=== PATIENT | male | born 1965 | race Caucasian/White ===

== ENCOUNTER → 2016-12-09 | Outpatient (CLI) | payer OTHER ==
[~2016-12-09] MED LIST: ACET-1256 PO; LISI-787 PO; TNR50 PO
[2016-12-14 18:29] LABS: MUMPS VIRUS ANTIBODY IGM <1:20
== END | disposition home or self-care (01) ==
LOC: C.LABBFT 17:44
PROVIDERS: ATTEND Nurse Practitioner
DX: J02.9 Acute pharyngitis, unspecified (principal)

== ENCOUNTER → 2017-02-07 | Outpatient (CLI) | payer OTHER ==
[2017-02-07 14:50] LABS: ALT/SGPT 47 U/L (12-78); AST/SGOT 23 U/L (15-37); BLOOD UREA NITROGEN 10 mg/dl (7-18); BUN/CREATININE RATIO 9.2 (10-20); CALCIUM 8.7 mg/dl (8.5-10.1); CARBON DIOXIDE 26 mmol/L (21-32); CHLORIDE 102 mmol/L (98-107); GLUCOSE 95 mg/dl (70-99); POTASSIUM 4.2 mmol/L (3.5-5.1); SODIUM 138 mmol/L (136-145)
[2017-02-07 14:54] LABS: ALKALINE PHOSPHATASE 63 U/L (45-117); CHOLESTEROL 156 mg/dl (0-200); CHOLESTEROL/HDL RATIO 3.1; HDL CHOLESTEROL 50 mg/dl; LDL CHOLESTEROL CALCULATED 44 mg/dl; TRIGLYCERIDES 312 mg/dl (0-150); VERY LOW DENSITY LIPOPROT CALC 62 mg/dl
== END | disposition home or self-care (01) ==
LOC: C.LABBFT 08:34
PROVIDERS: ATTEND Physician Assistant Medical
DX: E78.5 Hyperlipidemia, unspecified (principal)

== ENCOUNTER → 2017-06-22 | Outpatient (CLI) | payer OTHER ==
[2017-06-22 12:12] LABS: BASO % 0.3 %; BASO ABS # 0.03 K/uL (0-0.2); COMPLETE YES; EOS % 3.4 %; HEMATOCRIT 41.8 % (42-52); IG% 0.7 %; LYMPH % 29.4 %; LYMPH ABS # 2.53 K/uL (1.2-3.4); MEAN CELL VOLUME 89.7 fL (80-100); MEAN CORPUSCULAR HEMOGLOBIN 29.8 pg (25-34); MEAN CORPUSCULAR HGB CONC 33.3 g/dl (32-36); MEAN PLATELET VOLUME 9.7 fL (7.4-10.4); MONO % 8.9 %; NEUT % 57.3 %; PLATELET COUNT 284 K/uL (130-400); RED BLOOD COUNT 4.66 M/uL (4.7-6.1); WHITE BLOOD COUNT 8.62 K/uL (4.8-10.8)
[2017-06-22 13:42] LABS: BLOOD UREA NITROGEN 18 mg/dl (7-18); BUN/CREATININE RATIO 13.6 (10-20); CARBON DIOXIDE 28 mmol/L (21-32); CHLORIDE 101 mmol/L (98-107); GLUCOSE 106 mg/dl (70-99); SODIUM 135 mmol/L (136-145)
[2017-06-22 13:45] LABS: PROSTATE SPECIFIC ANTIGEN 0.639 ng/ml (0.000-4.000)
[2017-06-22 13:51] LABS: ESTIMATED AVERAGE GLUCOSE 123 mg/dl; HA1C FLAG Normal (Normal)
== END | disposition home or self-care (01) ==
LOC: C.LABBFT 08:44
PROVIDERS: ATTEND Internal Medicine
DX: R73.9 Hyperglycemia, unspecified (principal); Z12.5 Encounter for screening for malignant neoplasm of prostate

== ENCOUNTER → 2017-12-13 | Outpatient (CLI) | payer OTHER ==
[~2017-12-13] MED LIST changes: +ATEN50TA8 PO; +ATOR-54 PO; +AZIT250T PO; +LISI-788 PO; +MULT-916 PO; +NICO2GUM7; +PRLSR20 PO
[2017-12-13 12:24] LABS: BASO % 0.5 %; BASO ABS # 0.04 K/uL (0-0.2); EOS % 2.3 %; HEMATOCRIT 40.7 % (42-52); HEMOGLOBIN 14.2 g/dL (14.0-18.0); IG# 0.03 K/uL (0.00-0.02); LYMPH % 27.8 %; LYMPH ABS # 2.37 K/uL (1.2-3.4); MEAN CELL VOLUME 88.1 fL (80-100); MEAN CORPUSCULAR HEMOGLOBIN 30.7 pg (25-34); MEAN CORPUSCULAR HGB CONC 34.9 g/dl (32-36); MEAN PLATELET VOLUME 9.5 fL (7.4-10.4); MONO % 7.5 %; MONO ABS # 0.64 K/uL (0.11-0.59); NEUT % 61.5 %; NEUT ABS # 5.25 K/uL (1.4-6.5); PLATELET COUNT 311 K/uL (130-400); RED CELL DISTRIBUTION WIDTH CV 13.2 % (11.5-14.5); RED CELL DISTRIBUTION WIDTH SD 42.4 fL (36.4-46.3); WHITE BLOOD COUNT 8.53 K/uL (4.8-10.8)
[2017-12-13 12:37] LABS: BLOOD UREA NITROGEN 13 mg/dl (7-18); CALCIUM 9.4 mg/dl (8.5-10.1); CARBON DIOXIDE 27 mmol/L (21-32); CREATININE 1.24 mg/dl (0.60-1.40); GLUCOSE 113 mg/dl (70-99); POTASSIUM 3.9 mmol/L (3.5-5.1); SODIUM 135 mmol/L (136-145)
[2017-12-13 13:06] LABS: HEMOGLOBIN A1C 5.8 % (4.5-5.6)
== END | disposition home or self-care (01) ==
LOC: C.LABBFT 09:56
PROVIDERS: ATTEND Internal Medicine
DX: R73.01 Impaired fasting glucose (principal); D64.9 Anemia, unspecified

== ENCOUNTER → 2018-02-15 | Day surgery (SDC) | payer OTHER ==
[2018-02-08 08:22] VITALS: BMI 35.0
[~2018-02-15] VITALS: Ht 188 cm; Wt 122.7 kg
[~2018-02-15] MED LIST changes: -ACET-1256 PO; -LISI-787 PO; +SODIUM CHLORIDE 0.9% 500ML 500 ML IV ONE; -TNR50 PO
[2018-02-15 15:12] VITALS: Ht 188 cm; Wt 122.7 kg
--- NOTE | 2018-02-15 15:28 | Endo History and Physical ---
History & Physical Date of Service: Feb 15, 2018. Chief Complaint: SCREENING FOR COLON CANCER Referring Physician: DR SU History of Present Illness 52 yo CM who presents for screening colonoscopy. Past Surgical History Hx Cardiac Surgery: No Hx Internal Defibrillator: No Hx Pacemaker: No Hx Abdominal Surgery: Yes (ABDOMINAL HERNIA) Hx of Implantable Prosthesis: No Hx Post-Op Nausea and Vomiting: No Hx Cancer Surgery: No Hx Thoracic Surgery: No Hx Orthopedic: Yes (RT HAND FINGER AMPUTATION/RE-ATTACHED) Hx Urinary Tract Surgery: No Family History None Social History Smoking Status: Former Smoker Hx Substance Use: No Hx Alcohol Use: Yes (3-4 DRINKS DAILY) Allergies Coded Allergies: No Known Allergies (Verified , 02/08/18) Current Medications Reported Home Medications Medications Dose Route/Sig Max Daily Dose Days Date Category Nicorette 2MG Gum (Nicotine Polacrilex) 2 Mg Gum 02/08/18 Reported Multivitamin Adults 50+ (Multiple Vitamins W/ Minerals) 1 Tab Tab 1 Tab PO QAM 02/08/18 Reported Prilosec (Omeprazole) 20 Mg Capcr 20 Mg PO QAM 02/08/18 Reported Zestoretic 20MG/25MG (HCTZ/Lisinopril) Tab 1 Tab PO QAM 02/08/18 Reported Zithromax (Azithromycin) 250 Mg Tab 250 Mg PO DIRECTED 02/08/18 Reported Lipitor (Atorvastatin) 20 Mg Tab 20 Mg PO QAM 02/08/18 Reported Tenormin (Atenolol) 50 Mg Tab 50 Mg PO QAM 02/08/18 Reported Vital Signs Weight (Kilograms): 122.73 Height (Feet): 6 Height (Inches): 2 Physical Exam General Appearance: WD/WN, no apparent distress Respiratory/Chest: Auscultation: breath sounds normal Cardiovascular: Heart Auscultation: RRR Abdomen: Bowel Sounds: normal Inspection & Palpation: soft, non-distended, no tenderness, guarding & rebound Assessment and Plan Assessment: 52 yo CM who presents for screening colonoscopy. Plan: Proceed with colonoscopy.
--- NOTE | 2018-02-15 16:32 | Discharge Instructions ---
Endoscopy Patient Instructions Date / Procedure(s) Performed Feb 15, 2018. Colonoscopy Allergy Information Coded Allergies: No Known Allergies (Verified , 02/08/18) Discharge Date / Findings Feb 15, 2018. Fair bowel prep Medication Instructions OK to resume all medications today as prescribed Reported Home Medications Medications Dose Route/Sig Max Daily Dose Days Date Category Nicorette 2MG Gum (Nicotine Polacrilex) 2 Mg Gum 02/08/18 Reported Multivitamin Adults 50+ (Multiple Vitamins W/ Minerals) 1 Tab Tab 1 Tab PO QAM 02/08/18 Reported Prilosec (Omeprazole) 20 Mg Capcr 20 Mg PO QAM 02/08/18 Reported Zestoretic 20MG/25MG (HCTZ/Lisinopril) Tab 1 Tab PO QAM 02/08/18 Reported Zithromax (Azithromycin) 250 Mg Tab 250 Mg PO DIRECTED 02/08/18 Reported Lipitor (Atorvastatin) 20 Mg Tab 20 Mg PO QAM 02/08/18 Reported Tenormin (Atenolol) 50 Mg Tab 50 Mg PO QAM 02/08/18 Reported Provider Instructions Activity Restrictions - No exercising or heavy lifting for 24 hours. - Do not drink alcohol the day of the procedure. - Do not drive a car or operate machinery until the day after the procedure. - Do not make any important decisions or sign important papers in 24 hours after the procedure. Following Day: - Return to full activity which may include returning to work/school. Diet Start your diet with liquids and light foods (jello, soup, juice, toast). Then eat your usual diet if not nauseated. Treatment For Common After Affects For mild abdominal pain, bloating, or excessive gas: - Rest - Eat lightly - Lie on right side Follow-Up Information Follow-up with DR SU as scheduled Anesthesia Information What You Should Know You have had a procedure that required some medicine to reduce anxiety and discomfort. This treatment is called moderate sedation. After receiving the treatment, you may be sleepy, but you will be able to breathe on your own. The effects of the treatment may last for several hours. Follow these instructions along with Activity/Diet recommendations noted above: * Do NOT do anything where dizziness or clumsiness would be dangerous. * Rest quietly at home today, then you can be up and about tomorrow. * Have a responsible person stay with you the rest of today. * You may have had an I.V. today. If so, you may take the dressing off later today. Recommendations Call your doctor if: * Trouble breathing * Continuous vomiting for more than 24 hours * Temperature above 101 degrees * Severe abdominal pain or bloating * Pain not relieved by pain medicine ordered * There is increased drainage or redness from any incision * A large amount of rectal bleeding greater than 2-3 tablespoons. (If you had a polyp/s removed or have hemorrhoids, a small amount of blood - from the rectum is to be expected.) * You have any unanswered questions or concerns. IN THE EVENT OF A SERIOUS EMERGENCY, GO TO THE NEAREST EMERGENCY ROOM Your discharge instructions were prepared by provider Boris Avalos. Patient Instructions Signature Page Noel Russell Patient (or Guardian) Signature/Date: I have read and understand the instructions given to me by my caregivers. Caregiver/RN/Doctor Signature/Date: The above-named patient and/or guardian has received patient instructions on this date. + Original Patient Signature Page (only) stays with chart. Please make copy for patient.
--- NOTE | 2018-02-15 16:51 | Anesthesiology Progress Note ---
Anesthesia Post Op Note Date & Time Feb 15, 2018 at 16:51 Vital Signs Pain Intensity: 0 Vital Signs Past 12 Hours Date Time Temp Pulse Resp B/P (MAP) Pulse Ox O2 Delivery O2 Flow Rate FiO2 02/15/18 16:49 76 18 134/83 (100) 97 Room Air 02/15/18 16:34 84 17 115/67 (83) 96 Room Air Notes Mental Status: alert / awake / arousable, participated in evaluation Pt Amnestic to Procedure: Yes Nausea / Vomiting: adequately controlled Pain: adequately controlled Airway Patency, RR, SpO2: stable & adequate BP & HR: stable & adequate Hydration State: stable & adequate Anesthetic Complications: no major complications apparent
[2018-02-15 17:04] VITALS: BP 119/70; PULSE 73; O2SAT 98
--- NOTE | 2018-02-16 11:34 | GI REPORT ---
Patient Name: Noel Russell Procedure Date: 02/15/2018 3:29 PM Date of : 1965 Admit Type: Outpatient Age: 52 Gender: Male Attending MD: Boris Avalos DO Procedure: Colonoscopy Providers: Boris Avalos DO Referring MD: Jose Salazar Indications: Screening for colorectal malignant neoplasm Medicines: Monitored Anesthesia Care Complications: No immediate complications. Estimated Blood Loss: Estimated blood loss: none. Procedure: Pre-Anesthesia Assessment: - Prior to the procedure, a History and Physical was performed, and patient medications and allergies were reviewed. The patient's tolerance of previous anesthesia was also reviewed. The risks and benefits of the procedure and the sedation options and risks were discussed with the patient. All questions were answered, and informed consent was obtained. Prior Anticoagulants: The patient has taken no previous anticoagulant or antiplatelet agents. ASA Grade Assessment: II - A patient with mild systemic disease. After reviewing the risks and benefits, the patient was deemed in satisfactory condition to undergo the procedure. After I obtained informed consent, the scope was passed under direct vision. Throughout the procedure, the patient's blood pressure, pulse, and oxygen saturations were monitored continuously. The scope was introduced through the anus and advanced to the terminal ileum. The colonoscopy was performed without difficulty. The patient tolerated the procedure well. The quality of the bowel preparation was fair. The terminal ileum, ileocecal valve, appendiceal orifice, and rectum were photographed. Findings: The perianal and digital rectal examinations were normal. A moderate amount of semi-solid stool was found in the entire colon, precluding visualization. Lavage of the area was performed using a large amount, resulting in incomplete clearance with fair visualization. Impression: - Preparation of the colon was fair. - Stool in the entire examined colon. - No specimens collected. Recommendation: - Resume previous diet. - Continue present medications. - Repeat colonoscopy in 1 year because the bowel preparation was poor. - Return to primary care physician as previously scheduled. Boris Avalos DO 02/15/2018 4:39:42 PM This report has been signed electronically. Note Initiated On: 02/15/2018 3:29 PM Number of Addenda: 0 I attest to the content of the Intraoperative Record and orders documented therein, exceptions below {[id number]}
== END | disposition home or self-care (01) ==
LOC: C.GI 13:58
PROVIDERS: ATTEND Internal Medicine
DX: Z12.11 Encounter for screening for malignant neoplasm of colon (principal); I10 Essential (primary) hypertension; K21.9 Gastro-esophageal reflux disease without esophagitis; J45.909 Unspecified asthma, uncomplicated; Z87.891 Personal history of nicotine dependence

== ENCOUNTER 2025-10-18 16:42 | Inpatient (IN) ==
--- NOTE | 2025-10-18 17:19 | Emergency Department Note ---
History of Present Illness General Chief Complaint: Respiratory Problems Stated Complaint: POSS PNEUMONIA, CHEST X-RAY Time Seen by Provider: 10/18/25 16:49 History of Present Illness Provider Complaint: shortness of breath and cough Onset (ago): day(s) (2) Consistency/Duration: + progressively worsening Exacerbated By: + exertion and + coughing Context: + recent illness (Diagnosed with influenza A yesterday at home test) Known history of: asthma Associated symptoms: + fever, + cough, + wheezing, + sputum production and + chest congestion; no nausea/vomiting, no abdominal pain or no rash HPI Narrative: Patient was started on Tamiflu yesterday Home Medications Medication Instructions Recorded Confirmed Type albuterol sulfate 90 mcg/actuation 2 inh inhalation Q4H PRN shortness 01/10/24 10/18/25 Rx aerosol inhaler of breath or wheezing #6.7 grams cholecalciferol (vitamin D3) 125 125 mcg PO DAILY 06/14/24 10/18/25 History mcg (5,000 unit) capsule sildenafil 50 mg tablet (Viagra) 50 mg PO DAILY PRN sexual activity 06/22/24 10/18/25 Rx #20 tabs metformin 500 mg tablet,extended 500 mg PO BID #180 tabs 10/09/24 10/18/25 Rx release 24 hr levothyroxine 175 mcg tablet 175 mcg PO DAILY #90 tabs 03/04/25 10/18/25 Rx lisinopril 20 1 tab PO DAILY #90 tabs 07/10/25 10/18/25 Rx mg-hydrochlorothiazide 25 mg tablet allopurinol 300 mg tablet 300 mg PO DAILY #90 tabs 07/11/25 10/18/25 Rx atorvastatin 80 mg tablet 80 mg PO QAM #90 tabs 09/27/25 10/18/25 Rx atenolol 50 mg tablet 50 mg PO QAM #90 tabs 09/30/25 10/18/25 Rx benzonatate 200 mg capsule 200 mg PO TID PRN cough #30 caps 10/15/25 10/18/25 Rx oseltamivir 75 mg capsule (Tamiflu) 75 mg PO BID 5 days #10 caps 10/15/25 10/18/25 Rx Allergies Allergy/AdvReac Type Severity Reaction Status Date / Time celecoxib Allergy Intermediate Rash Verified 10/14/25 09:06 Past Med/Surg History Problem List (Updated 10/18/25 @ 19:46 by Pradeep Aguilar MD) Hypomagnesemia (Acute) Influenza (Acute) Hypoxia (Acute) Bilateral foot pain Right foot pain Herpes zoster Vitamin D deficiency Gout Status post thyroidectomy Exertional shortness of breath Hypothyroidism associated with surgical procedure H/O shoulder surgery 08/10/23-scapula muscle repair Obesity Asthma Hypercalcemia Abnormal computed tomography of lung Conversion disorder with seizures or convulsions GERD (gastroesophageal reflux disease) Hyperlipidemia Hypertension Inguinal hernia Insomnia Microscopic hematuria PTSD (post-traumatic stress disorder) Moderate obstructive sleep apnea Nocturnal hypoxemia Osteoarthritis of left shoulder Thyroid nodule Pulmonary nodule 6MM NODULE IN RIGHT LOWER LUNG LOBE PER 10/18/22 CHEST CTA Cervical radiculopathy Prediabetes Medical History Hx of gastroesophageal reflux (GERD) Stable and controlled Post traumatic stress disorder History of COVID-2019>RESOLVED Abscess of buttock, right Seen by general surgery 11/24/22- possible fistula to right buttocks - no antibiotics - no pus or drainage at this time Sleep apnea CPAP "JUST GOT NEW DEVICE">WAS TOLD NOT TO USE UNTIL VISIT WITH DR. CROUCH (NO APPT AT THIS TIME) Hyperglobulinemia Hypertension Hyperlipidemia Surgical History H/O drainage of abscess (02/21/02) 1. Rectal examination under anesthesia. 2. Incision and drainage of perirectal abscess. Dr. Mani Frausto Status post incision and drainage (08/31/19) incision and drainage perirectal abscess Dr. Oviedo History of right inguinal hernia repair (06/20/19) Right Open Recurrent Inguinal Hernia Repair with Mesh, Neurectomy, Explantation of Mesh(Right) - Maurice Phillips DO, FACS Status post laparoscopic hernia repair (12/27/18) Right Laparoscopic Inguinal Hernia Repair(Right) - Maurice Phillips DO, FACS Open Umbilical Hernia Repair with mesh (Not Applicable) - Maurice Phillips DO, FACS Status post replacement of right shoulder joint (~11/2022) H/O arthroscopy of hip RT History of tooth extraction History of hernia surgery RT INGUINAL HERNIA (TOTAL 9 SURGERIES FOR HERNIA IN RT GROIN) 11/15/2019 Dr. Vinny Mccray [place] Exploration of right groin, right rectus abdominis compartment Decompression Right rectus abdominis repair Mobilization of mesh on the right Right adductor Longus and Pectineus Repairs Right adductor Longus and Pectineus Compartment Decompression Steroid Injection Hx of colonoscopy 02/05/2004 Dr. Corbin 02/15/18 Dr. Avalos (was recommended to have repeated in one year) 04/21/2000 Dr. Avalos History of surgery REATTACHMENT OF SEVERED FINGER History of vasectomy Family History Family/Other Hypertension Father Suicide Other No family history of adverse response to anesthesia Obstructive sleep apnea Denies family history of Ovarian cancer Prostate cancer Breast cancer Colorectal cancer Social History Smoking Status: Former smoker Tobacco Type: Cigars Age Started Using Tobacco: 42; Cigarettes Per Day: Pt reports smoking 1-2 cigars a year at [employer] -USES [employer]IC[employer] G[employer] NOW; Second Hand Exposure: No; Do You Dip or Chew Tobacco: No (QUIT 2 YEARS AGO); Hx Alcohol Use: Yes Alcohol type: beer Alcohol Intake Frequency: 4 or More x per/Week Alcohol Intake Frequency Comment: Average 2 beers per day during the week, 6-7 beers per day on weekend Hx Substance Use: No Preferred Language: Maltese Communication Ability: Effective Visual Impairment: No Limitations Hearing Ability: Normal Computational Linguist Required: No Beliefs That Will Affect Care: None marital status: Current Living Situation: Significant Other Current Living Situation Comment: Lives with son and girlfriend current occupational status: employed 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 [facility] Feels Safe at Home: Yes Childhood Exposure to Second-Hand Smoke: Yes Diet: regular caffeine: Yes Dental Care, Regularly: No Physical Activity Frequency: 3-4 Times per Week Seatbelt Use: always Sunscreen Use: No Assistive Devices: Contacts, CPAP and Glasses Physical Exam 2 Vital Signs: Vital Signs - 24 hr 10/18/25 16:43 10/18/25 16:53 10/18/25 16:57 Temperature 36.1 C L Temperature Source Temporal Artery Sc an Pulse Rate 91 H 83 Pulse Rate [Apical ] Pulse Rate from Sp O2 Sensor Respiratory Rate 18 Respiratory Effort / Characteristics Non-Labored Sponta neous Spontaneous Respiratory Depth Normal Normal Respiratory Patter n Regular Regular Blood Pressure 138/84 Blood Pressure [Ri ght Arm] Blood Pressure Susana n 102 Blood Pressure Susana n [Right Arm] Pulse Oximetry 88 L Oxygen Delivery Me thod Room Air Room Air Oxygen Flow Rate Sepsis Recent Feve r Within 48 Hours No Sepsis New/Unexpla ined Change in Men whitney Status No Sepsis Action Take n by Nursing No Action Required Oxygen Flow Rate - Titration Pulse Oximetry Pos t Tiitration 10/18/25 17:00 10/18/25 17:04 10/18/25 17:12 Temperature Temperature Source Pulse Rate 83 85 85 Pulse Rate [Apical ] Pulse Rate from Sp O2 Sensor Respiratory Rate 18 24 24 Respiratory Effort / Characteristics Respiratory Depth Respiratory Patter n Blood Pressure 110/83 Blood Pressure [Ri ght Arm] Blood Pressure Susana n 92 Blood Pressure Susana n [Right Arm] Pulse Oximetry 95 93 Oxygen Delivery Me thod Room Air Oxygen Flow Rate Sepsis Recent Feve r Within 48 Hours Sepsis New/Unexpla ined Change in Men whitney Status Sepsis Action Take n by Nursing Oxygen Flow Rate - Titration Pulse Oximetry Pos t Tiitration 10/18/25 17:30 10/18/25 17:38 10/18/25 17:42 Temperature Temperature Source Pulse Rate 85 84 Pulse Rate [Apical ] 86 Pulse Rate from Sp O2 Sensor Respiratory Rate 23 21 23 Respiratory Effort / Characteristics Respiratory Depth Respiratory Patter n Blood Pressure 115/71 Blood Pressure [Ri ght Arm] 115/71 Blood Pressure Susana n 85 Blood Pressure Susana n [Right Arm] 85 Pulse Oximetry 96 94 93 Oxygen Delivery Me thod Room Air Oxygen Flow Rate Sepsis Recent Feve r Within 48 Hours Sepsis New/Unexpla ined Change in Men whitney Status Sepsis Action Take n by Nursing Oxygen Flow Rate - Titration Pulse Oximetry Pos t Tiitration 10/18/25 18:00 10/18/25 18:06 10/18/25 18:15 Temperature Temperature Source Pulse Rate 82 86 99 H Pulse Rate [Apical ] Pulse Rate from Sp O2 Sensor Respiratory Rate 18 20 14 Respiratory Effort / Characteristics Respiratory Depth Respiratory Patter n Blood Pressure 122/77 Blood Pressure [Ri ght Arm] Blood Pressure Susana n 92 Blood Pressure Susana n [Right Arm] Pulse Oximetry 96 95 94 Oxygen Delivery Me thod Oxygen Flow Rate Sepsis Recent Feve r Within 48 Hours Sepsis New/Unexpla ined Change in Men whitney Status Sepsis Action Take n by Nursing Oxygen Flow Rate - Titration Pulse Oximetry Pos t Tiitration 10/18/25 18:16 10/18/25 18:30 10/18/25 18:42 Temperature Temperature Source Pulse Rate 97 H Pulse Rate [Apical ] Pulse Rate from Sp O2 Sensor 105 H Respiratory Rate 19 Respiratory Effort / Characteristics Respiratory Depth Respiratory Patter n Blood Pressure 120/84 Blood Pressure [Ri ght Arm] Blood Pressure Susana n 90 Blood Pressure Susana n [Right Arm] Pulse Oximetry 93 98 Oxygen Delivery Me thod Oxygen Flow Rate Sepsis Recent Feve r Within 48 Hours Sepsis New/Unexpla ined Change in Men whitney Status Sepsis Action Take n by Nursing Oxygen Flow Rate - Titration Pulse Oximetry Pos t Tiitration 10/18/25 18:53 10/18/25 19:00 10/18/25 19:12 Temperature Temperature Source Pulse Rate 110 H Pulse Rate [Apical ] Pulse Rate from Sp O2 Sensor Respiratory Rate 16 Respiratory Effort / Characteristics Respiratory Depth Respiratory Patter n Blood Pressure 108/62 127/68 Blood Pressure [Ri ght Arm] Blood Pressure Suasna n 71 87 Blood Pressure Susana n [Right Arm] Pulse Oximetry 92 86 L Oxygen Delivery Me thod Room Air Oxygen Flow Rate 0 Sepsis Recent Feve r Within 48 Hours Sepsis New/Unexpla ined Change in Men whitney Status Sepsis Action Take n by Nursing Oxygen Flow Rate - Titration 2 Pulse Oximetry Pos t Tiitration 95 10/18/25 19:15 10/18/25 19:30 Temperature Temperature Source Pulse Rate 104 H 102 H Pulse Rate [Apical ] Pulse Rate from Sp O2 Sensor Respiratory Rate 18 23 Respiratory Effort / Characteristics Respiratory Depth Respiratory Patter n Blood Pressure 139/96 Blood Pressure [Ri ght Arm] Blood Pressure Susana n 110 Blood Pressure Susana n [Right Arm] Pulse Oximetry 93 95 Oxygen Delivery Me thod Oxygen Flow Rate Sepsis Recent Feve r Within 48 Hours Sepsis New/Unexpla ined Change in Men whitney Status Sepsis Action Take n by Nursing Oxygen Flow Rate - Titration Pulse Oximetry Pos t Tiitration Physical Exam: Physical Exam GENERAL: oriented to person, place, and time. appears well-developed and well- nourished. HENT: Exam performed. - Head: Normocephalic and atraumatic. EYES: Conjunctivae and EOM are normal. Right eye exhibits no discharge. Left eye exhibits no discharge. No scleral icterus. NECK: Normal range of motion. Neck supple. No JVD present. CV: Normal rate, regular rhythm, normal heart sounds and intact distal pulses. There is no peripheral edema. Palpable radial pulses bue. PULM/CHEST: Scant expiratory wheezes bilaterally. ABD: The abdomen is soft. There is no tenderness. NEURO: Motor and sensation grossly intact. SKIN: Skin is warm and dry. He is not diaphoretic. PSYCH: normal mood and affect. Behavior is normal. Judgment and thought content normal. Course Course 1648: The patient was evaluated in room C9. A complete history and physical exam was performed Cardiac monitoring: An order was placed for continuous cardiac monitoring. The monitor shows a rate of 80 with sinus rhythm interpreted by me Patient was hypoxic in triage however when at rest in the bed patient's oxygen saturation is stable. Will order DuoNebs and steroids were patient. 1832: Vital signs stable. Ambulatory pulse ox trial patient's oxygen saturation goes down to 88-90. Will give repeat DuoNeb. 1915: Patient became hypoxic in the emergency department. Placed on 2 L nasal cannula which improved the patient ox saturation. Will plan on admitting the patient to the hospitalist service. Administered Medications Magnesium Sulfate/Dextrose (Magnesium Sulfate / D5w) 1 gm in 100 mls @ 100 mls/hr IV Q1H WENDI Stop: 10/18/25 20:06 Last Admin: 10/18/25 19:19 Dose: 100 mls/hr Documented By: cad Infusion: 10/18/25 19:19 Dose: Infused Documented By: cad Admin: 10/18/25 18:35 Dose: 100 mls/hr Documented By: CEF Discontinued Medications Albuterol (Albut/Ipratrop 3mg/0.5mg Neb 3 Ml Vial) 3 ml NEB NOW STA; Protocol Stop: 10/18/25 16:58 Last Admin: 10/18/25 17:41 Dose: 3 ml Documented By: cad Albuterol (Albut/Ipratrop 3mg/0.5mg Neb 3 Ml Vial) 3 ml NEB NOW STA; Protocol Stop: 10/18/25 16:59 Last Admin: 10/18/25 17:57 Dose: 3 ml Documented By: cad Albuterol (Albut/Ipratrop 3mg/0.5mg Neb 3 Ml Vial) 3 ml NEB NOW STA; Protocol Stop: 10/18/25 18:32 Last Admin: 10/18/25 18:33 Dose: 3 ml Documented By: CEF Methylprednisolone (Methylprednisolone 125 Mg/2 Ml Vial) 125 mg IV NOW STA Stop: 10/18/25 16:58 Last Admin: 10/18/25 17:40 Dose: 125 mg Documented By: cad Medical Decision Making Laboratory Data Attestation: I reviewed the patient's lab results. 10/18/25 17:18 10/18/25 17:18 Lab Results 10/18/25 10/18/25 10/18/25 Range/Units 17:18 17:29 17:38 WBC 7.27 (4.8-10.8) K/ul RBC 4.88 (4.70-6.10) M/uL Hgb 14.5 (14.0-18.0) g/dL Hct 42.8 (42.0-52.0) % MCV 87.7 (80.0-100.0) fL MCH 29.7 (25.0-34.0) pg MCHC 33.9 (32.0-36.0) g/dL RDW Std Deviation 44.0 (36.4-46.3) fL RDW Coeff of Meghann 13.7 (11.5-14.5) % Plt Count 263 (130-400) K/uL MPV 9.5 (9.4-12.4) fL Immature Gran % (Auto) 0.3 % Neut % (Auto) 53.5 % Lymph % (Auto) 33.1 % [place] % (Auto) 7.4 % Eos % (Auto) 5.1 % Baso % (Auto) 0.6 % Neut # (Auto) 3.89 (1.40-6.50) K/uL Lymph # (Auto) 2.41 (1.20-3.40) K/uL [place] # (Auto) 0.54 (0.11-0.59) K/uL Eos # (Auto) 0.37 (0.00-0.50) K/uL Baso # (Auto) 0.04 (0.00-0.20) K/uL Immature Gran # (Auto) 0.02 (0.01-0.20) K/uL PT 11.1 (9.0-12.0) Seconds INR 1.1 (0.9-1.1) APTT 24 (21-31) Seconds PTT Ratio 0.9 VBG pH 7.45 H (7.36-7.41) VBG pCO2 42 (38-50) mmHg VBG pO2 61 mmHg VBG HCO3 29 mmol/L VBG O2 Saturation 93.3 % VBG Base Excess 4.7 mEq/L Sodium 136 (136-145) mmol/L Potassium 3.7 (3.5-5.1) mmol/L Chloride 98 (98-107) mmol/L Carbon Dioxide 30 (21-32) mmol/L Anion Gap 8 (3-11) BUN 22 (6-23) mg/dl Creatinine 1.20 (0.6-1.4) mg/dl Est Cr Clr Drug Dosing 104.9 ml/min eGFR 70.10 BUN/Creatinine Ratio 18.3 (10-20) Glucose 119 H (70-99(Fasting)) mg/dl Lactate 1.4 (0.4-2.0) mmol/L Calcium 9.5 (8.6-10.3) mg/dl Magnesium 1.1 L (1.7-2.4) mg/dl Total Bilirubin 0.3 (0.2-1.0) mg/dl Direct Bilirubin 0.1 (0-0.2) mg/dl AST 31 (13-39) U/L ALT 29 (7-52) U/L Alkaline Phosphatase 63 (34-104) U/L Troponin I High Sens 4.1 (0-20) pg/ml Total Protein 7.3 (6.0-8.3) gm/dl Albumin 4.1 (3.4-5.0) gm/dl Procalcitonin 0.06 (0-0.5) ng/ml SARS-CoV-2 (PCR) NEGATIVE (Negative) Influenza Type A (PCR) Positive A (Neg) Influenza Type B (PCR) Negative (Neg) RSV (RT-PCR) Negative (Neg) Imaging Data Attestation: I personally reviewed and interpreted this imaging study as follows: My Impression: Chest x-ray negative. Airway clear. No pneumothorax. No consolidation. No cardiomegaly or cephalization.. No free air under the diaphragm. No fractures of the skeletal structures. Radiologist's Impression: Chest X-Ray 10/18/25 16:49 COMPARISON: 08/26/2023 FINDINGS: HEART: Normal in size. LUNGS: No focal consolidation, pleural effusion, or vascular congestion. MEEDIASTINUM: Unremarkable. BONES: Bony thorax appears intact. OTHER: Unremarkable. IMPRESSION: No acute disease. Electronically signed by Lauren Aguilar 10-18-2025 6:13 PM ECG Data Attestation: I personally reviewed and interpreted this ECG as follows: Interpretation: Sinus rhythm with rate of 82. MI QRS and QTc intervals within normal limits. No ST elevation or ST depression. Right bundle branch block present. [facility] Narrative 1649: The patient was evaluated in room C9. A complete history and physical exam was performed Cardiac monitoring: An order was placed for continuous cardiac monitoring. The monitor shows a rate of 80 with sinus rhythm interpreted by me Patient was hypoxic in triage however when at rest in the bed patient's oxygen saturation is stable. Will order DuoNebs and steroids were patient. 183: Vital signs stable. Ambulatory pulse ox trial patient's oxygen saturation goes down to 88-90. Will give repeat DuoNeb. 191: Patient became hypoxic in the emergency department. Placed on 2 L nasal cannula which improved the patient ox saturation. Will plan on admitting the patient to the hospitalist service. Impression & Plan Hypoxia, Influenza, Hypomagnesemia Critical Care Time Critical Care Time: Yes Total Critical Care Time: 58 I have personally spent greater than 58 minutes of critical care time in the direct management of this patient. This includes bedside care, interpretation of diagnostic studies, and testing, discussion with consultants, patient, and family members, and other required patient management activities. This 58 minutes is in excess of all separately billable procedures. Discharge Plan Visit Data Chief Complaint: Respiratory Problems Stated Complaint: POSS PNEUMONIA, CHEST X-RAY ED Provider: Pradeep Aguilar Discharge Problem: Hypoxia, Influenza, Hypomagnesemia Patient Disposition: Admitted As Inpatient Condition: Serious Forms Stand Alone Forms: My [facility] Prescriptions Prescriptions: No Action sildenafil [Viagra] 50 mg tablet 50 mg PO DAILY PRN (Reason: sexual activity) Qty: 20 0RF Rx Instructions: administer 30 minutes to 4 hours before activity levothyroxine 175 mcg tablet 175 mcg PO DAILY Qty: 90 3RF lisinopril-hydrochlorothiazide 20-25 mg tablet 1 tab PO DAILY Qty: 90 3RF Patient Comments: pt takes in the am atorvastatin 80 mg tablet 80 mg PO QAM Qty: 90 3RF atenolol 50 mg tablet 50 mg PO QAM Qty: 90 3RF oseltamivir [Tamiflu] 75 mg capsule 75 mg PO BID 5 Days Qty: 10 0RF benzonatate 200 mg capsule 200 mg PO TID PRN (Reason: cough) Qty: 30 0RF Rx Instructions: Keep out of reach of children. Do not crush or chew. albuterol sulfate 90 mcg/actuation HFA aerosol inhaler 2 inh inhalation Q4H PRN (Reason: shortness of breath or wheezing) Qty: 6.7 3RF allopurinol 300 mg tablet 300 mg PO DAILY Qty: 90 3RF cholecalciferol (vitamin D3) 125 mcg (5,000 unit) capsule 125 mcg PO DAILY metformin 500 mg tablet extended release 24 hr 500 mg PO BID Qty: 180 3RF Referrals Referrals: Jose Salazar MD [Primary Care Provider] -
[2025-10-18] MEDS: ALBUT/IPRATROP 3MG/0.5MG NEB 3 ML VIAL NEB STA ×3 (17:41→18:33)
[2025-10-18 17:43] LABS: Hematocrit (blood only) 42.8 % (42.0-52.0); Hemoglobin 14.5 g/dL (14.0-18.0); Immature Granulocytes # (auto) 0.02 K/uL (0.01-0.20); Immature Granulocytes % (auto) 0.3 %; Mean Corpuscular Hemoglobin 29.7 pg (25.0-34.0); Mean Corpuscular Volume 87.7 fL (80.0-100.0); Platelet Count 263 K/uL (130-400); RDW Standard Deviation 44.0 fL (36.4-46.3); Red Blood Count 4.88 M/uL (4.70-6.10); White Blood Count 7.27 K/ul (4.8-10.8)
[2025-10-18 17:53] LABS: Base Excess VBG 4.7 mEq/L; HCO3 VBG 29 mmol/L; Oxygen Saturation VBG 93.3 %; PCO2 VBG 42 mmHg (38-50); PO2 VBG 61 mmHg; pH VBG 7.45 (7.36-7.41)
[2025-10-18 18:03] LABS: Alanine Aminotransferase 29.0 U/L (7-52); Albumin Level 4.1 gm/dl (3.4-5.0); Alkaline Phosphatase 63.0 U/L (34-104); Anion Gap 8.0 (3-11); Bilirubin,Total 0.3 mg/dl (0.2-1.0); Blood Urea Nitrogen 22.0 mg/dl (6-23); Calcium 9.5 mg/dl (8.6-10.3); Carbon Dioxide 30.0 mmol/L (21-32); Chloride 98.0 mmol/L (98-107); Creatinine Clr Calc Pharmacy 104.9 ml/min; Glucose 119.0 mg/dl (70-99(Fasting)); Magnesium 1.1 mg/dl (1.7-2.4); Potassium 3.7 mmol/L (3.5-5.1); Sodium 136.0 mmol/L (136-145); Total Protein 7.3 gm/dl (6.0-8.3)
[2025-10-18 18:11] LABS: INR 1.1 (0.9-1.1); Partial Thromboplastin Time 24 Seconds (21-31); Prothrombin Time 11.1 Seconds (9.0-12.0)
--- NOTE | 2025-10-18 18:14 | XRay Report ---
COMPARISON: 08/26/2023 FINDINGS: HEART: Normal in size. LUNGS: No focal consolidation, pleural effusion, or vascular congestion. MEEDIASTINUM: Unremarkable. BONES: Bony thorax appears intact. OTHER: Unremarkable. IMPRESSION: No acute disease. Electronically signed by Lauren Aguilar 10-18-2025 6:13 PM
[2025-10-18 18:19] LABS: Influenza A virus by PCR Positive (Neg); Influenza B virus by PCR Negative (Neg); SARS CoV2 RNA(COVID-19) Ceph NEGATIVE (Negative)
[2025-10-18] MEDS: MAGNESIUM SULFATE / D5W 1 GM/100 ML BAG IV SCH ×2 (18:35→21:48)
--- NOTE | 2025-10-18 20:07 | History & Physical Report ---
Date of Service October 18, 2025 Assessment & Plan (1) Influenza: (2) Hypoxia: (3) Hypomagnesemia: (4) Hypertension: (5) Hyperlipidemia: (6) Status post thyroidectomy: Plan 60yo male with history of HTN, HLP, presenting with Influenza A, worsening SOB and hypoxia today. #Influenza / Hypoxia - patient with remote history of childhood asthma. He has a pulmonary nodule which is being followed by Pulmonology. No respiratory distress at present. Patient is saturating 95% on Oxymask -Admit to medical with telemetry -Continue supplemental O2 as needed -Continue Tamiflu 75mg po BID -Albuterol 2 puffs inhaled q 4 hours scheduled -Guaifenesin cough syrup PRN -Tylenol PRN -Incentive spirometry and flutter valve #Hypomagnesemia - patient with Mg=1.1. Has received 2gm IV in the ER thus far -Will provide additional 4gm of Magnesium -Repeat levels in AM #Hypertension - blood pressure mildly elevated at present -Will hold HCTZ -Continue Atenolol 50mg po qAM -Continue Lisinopril 20mg po qAM -Monitor #Hyperlipidemia - chronic, stable -Continue Atorvastatin 80mg po qAM #Bilateral foot pain - suspect plantar fasciitis as well as pain on bilateral halluces from bunions (hallux valgus). Patient had an x-ray performed on 10/14 which revealed hallux valgus, metatarsus adductus and claw toe deformities as well as mild osteoarthropathy. In regards to the burning pain, Iron level, B12 and Folate were WNL on 10/14/25. Could possibly be due to low magnesium in part -Conservative treatment with ice, NSAIDS -May benefit from Orthotics and podiatry at some point -Magnesium replacement #Status post thyroidectomy- was told that he did not have thyroid malignancy so targeting a normal TSH is likely acceptable -Continue thyroid replacement -Check TSH -Consider referral to Endocrinology outpatient - patient has gained a large amount of weight since his thyroidectomy History of Present Illness Chief Complaint: flu-like symptoms Primary Care Provider: Jose Salazar MD Noel Russell is a 60yo male with history of HTN, HLP and GERD presenting with flu-like symptoms. Patient developed fever, chills, body aches, sore throat and cough on 10/14/25. He took a home test on 10/14 and found to be POSITIVE for Influenza A. He was started on Tamiflu on 10/15 and he has been taking Mucinex and Tracee [facility] at home to manage his symptoms. Patient overall feels improved from earlier in the week but has been experiencing worsening shortness of breath and cough. His cough is occasionally productive for clear/white sputum. He has noted some wheezing as well. Patient with history of Asthma as a child but has not had many adult symptoms. He does have a pulmonary nodule with minimal tree-in-bud opacities in the RUL which is being followed by Pulmonary - has been stable since 12/04/2021. He had an autoimmune workup that was negative in October 2023. He has had PFTs in the past which revealed a decline in lung function, possibly due to weight gain which occurred after his thyroidectomy. Patient is scheduled to have a repeat CT Chest, PFTs and Pulmonary followup in the coming weeks. In the ER patient with low body temperature at 36.1, tachycardic at 103 following Albuterol. Saturations have been low - 85% on room air upon arrival and and again with saturations in the 80's after ambulation. ER Course: Solumedrol 125mg Albuterol 3mL neb x 3 Magnesium x 2gm Allergies Allergy/AdvReac Type Severity Reaction Status Date / Time celecoxib Allergy Intermediate Rash Verified 10/14/25 09:06 Home Medications Medication Instructions Recorded Confirmed Type albuterol sulfate 90 mcg/actuation 2 inh inhalation Q4H PRN shortness 01/10/24 10/18/25 Rx aerosol inhaler of breath or wheezing #6.7 grams cholecalciferol (vitamin D3) 125 125 mcg PO DAILY 06/14/24 10/18/25 History mcg (5,000 unit) capsule sildenafil 50 mg tablet (Viagra) 50 mg PO DAILY PRN sexual activity 06/22/24 10/18/25 Rx #20 tabs metformin 500 mg tablet,extended 500 mg PO BID #180 tabs 10/09/24 10/18/25 Rx release 24 hr levothyroxine 175 mcg tablet 175 mcg PO DAILY #90 tabs 03/04/25 10/18/25 Rx lisinopril 20 1 tab PO DAILY #90 tabs 07/10/25 10/18/25 Rx mg-hydrochlorothiazide 25 mg tablet allopurinol 300 mg tablet 300 mg PO DAILY #90 tabs 07/11/25 10/18/25 Rx atorvastatin 80 mg tablet 80 mg PO QAM #90 tabs 09/27/25 10/18/25 Rx atenolol 50 mg tablet 50 mg PO QAM #90 tabs 09/30/25 10/18/25 Rx benzonatate 200 mg capsule 200 mg PO TID PRN cough #30 caps 10/15/25 10/18/25 Rx oseltamivir 75 mg capsule (Tamiflu) 75 mg PO BID 5 days #10 caps 10/15/25 10/18/25 Rx Past Med/Surg History Problem List (Updated 10/18/25 @ 21:02 by Claudy Mabry) Hypomagnesemia (Acute) Influenza (Acute) Hypoxia (Acute) Bilateral foot pain Right foot pain Herpes zoster Vitamin D deficiency Gout Status post thyroidectomy Exertional shortness of breath Hypothyroidism associated with surgical procedure H/O shoulder surgery 08/10/23-scapula muscle repair Obesity Asthma Hypercalcemia Abnormal computed tomography of lung Conversion disorder with seizures or convulsions GERD (gastroesophageal reflux disease) Hyperlipidemia Hypertension Inguinal hernia Insomnia Microscopic hematuria PTSD (post-traumatic stress disorder) Moderate obstructive sleep apnea Nocturnal hypoxemia Osteoarthritis of left shoulder Thyroid nodule Pulmonary nodule 6MM NODULE IN RIGHT LOWER LUNG LOBE PER 10/18/22 CHEST CTA Cervical radiculopathy Prediabetes Medical History Hx of gastroesophageal reflux (GERD) Stable and controlled Post traumatic stress disorder History of COVID-2019>RESOLVED Abscess of buttock, right Seen by general surgery 11/24/22- possible fistula to right buttocks - no antibiotics - no pus or drainage at this time Sleep apnea CPAP "JUST GOT NEW DEVICE">WAS TOLD NOT TO USE UNTIL VISIT WITH DR. CROUCH (NO APPT AT THIS TIME) Hyperglobulinemia Hypertension Hyperlipidemia Surgical History H/O drainage of abscess (02/21/02) 1. Rectal examination under anesthesia. 2. Incision and drainage of perirectal abscess. Dr. Mani Frausto Status post incision and drainage (08/31/19) incision and drainage perirectal abscess Dr. Oviedo History of right inguinal hernia repair (06/20/19) Right Open Recurrent Inguinal Hernia Repair with Mesh, Neurectomy, Explantation of Mesh(Right) - Maurice Phillips DO, FACS Status post laparoscopic hernia repair (12/27/18) Right Laparoscopic Inguinal Hernia Repair(Right) - Maurice Phillips DO, FACS Open Umbilical Hernia Repair with mesh (Not Applicable) - Maurice Phillips DO, FACS Status post replacement of right shoulder joint (~11/2022) H/O arthroscopy of hip RT History of tooth extraction History of hernia surgery RT INGUINAL HERNIA (TOTAL 9 SURGERIES FOR HERNIA IN RT GROIN) 11/15/2019 Dr. Vinny Mccray [facility] Exploration of right groin, right rectus abdominis compartment Decompression Right rectus abdominis repair Mobilization of mesh on the right Right adductor Longus and Pectineus Repairs Right adductor Longus and Pectineus Compartment Decompression Steroid Injection Hx of colonoscopy 02/05/2004 Dr. Corbin 02/15/18 Dr. Avalos (was recommended to have repeated in one year) 04/21/2000 Dr. Avalos History of surgery REATTACHMENT OF SEVERED FINGER History of vasectomy Family History Family/Other Hypertension Father Suicide Other No family history of adverse response to anesthesia Obstructive sleep apnea Denies family history of Ovarian cancer Prostate cancer Breast cancer Colorectal cancer Social History Smoking Status: Former smoker Tobacco Type: Cigars Age Started Using Tobacco: 42; Cigarettes Per Day: Pt reports smoking 1-2 cigars a year at [facility] -USES NICOTINE GUM NOW; Second Hand Exposure: No; Do You Dip or Chew Tobacco: No (QUIT 2 YEARS AGO); Hx Alcohol Use: Yes Alcohol type: beer Alcohol Intake Frequency: 4 or More x per/Week Alcohol Intake Frequency Comment: Average 2 beers per day during the week, 6-7 beers per day on weekend Hx Substance Use: No Preferred Language: Austrian Communication Ability: Effective Visual Impairment: No Limitations Hearing Ability: Normal Continuity Reader Required: No Beliefs That Will Affect Care: None marital status: Current Living Situation: Significant Other Current Living Situation Comment: Lives with son and girlfriend current occupational status: employed 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 [employer] [facility] [employer] Home Feels Safe at Home: Yes Childhood Exposure to Second-Hand Smoke: Yes Diet: regular caffeine: Yes Dental Care, Regularly: No Physical Activity Frequency: 3-4 Times per Week Seatbelt Use: always Sunscreen Use: No Assistive Devices: Contacts, CPAP and Glasses Review of Systems Review of Systems: All systems reviewed & are unremarkable except as noted in HPI & below Physical Exam Physical Exam: General: patient resting comfortably, NAD, ill in appearance, AA&O x 4 Skin: warm, dry, intact, no rashes or lesions HEENT: NC/AT, PERRL, EOMI, anicteric sclera, conjunctiva without injection, external ear normal to inspection and nontender, nares patent, moist mucus membranes, dentition intact, no oropharyngeal lesions, neck supple, trachea midline, no LAD, no thyromegaly, no JVD Heart: +S1/S2, regular, tachycardic, no m/r/g Lungs: equal air entry bilaterally, some coarse rhonchi appreciated in mid-lung brown with scattered end-expiratory wheezing throughout Abd: +BS, soft, NT/ND, no masses/organomegaly/ascites Ext: warm, 2+ pulses in UE/LE bilaterally, no clubbing/cyanosis or edema. Pain with palpation of the plantar portion of both feet, pain with palpation of 1st hallux bilaterally. No warmth, redness Neuro: nonfocal, patient AA&O x 4, speech intact, no facial droop, moving all ex tremities on command with equal strength 5/5 Results & Data Results & Data Vital Signs (Past 12 Hours) Vital Signs Temp Pulse Pulse Resp BP BP Pulse Ox 10/18/25 19:45 104 H 26 H 95 10/18/25 19:30 139/96 10/18/25 19:30 102 H 23 139/96 95 10/18/25 19:15 104 H 18 93 10/18/25 19:12 86 L 10/18/25 19:00 110 H 16 127/68 92 10/18/25 18:53 108/62 10/18/25 18:42 97 H 19 98 10/18/25 18:30 93 10/18/25 18:16 120/84 10/18/25 18:15 99 H 14 94 10/18/25 18:06 86 20 122/77 95 10/18/25 18:00 82 18 96 10/18/25 17:42 84 23 93 10/18/25 17:38 86 21 115/71 94 10/18/25 17:30 85 23 115/71 96 10/18/25 17:12 85 24 93 10/18/25 17:04 85 24 95 10/18/25 17:00 83 18 110/83 10/18/25 16:57 83 10/18/25 16:53 10/18/25 16:43 36.1 C L 91 H 18 138/84 88 L O2 Del Method O2 Flow Rate 10/18/25 19:45 10/18/25 19:30 10/18/25 19:30 10/18/25 19:15 10/18/25 19:12 Room Air 0 10/18/25 19:00 10/18/25 18:53 10/18/25 18:42 10/18/25 18:30 10/18/25 18:16 10/18/25 18:15 10/18/25 18:06 10/18/25 18:00 10/18/25 17:42 10/18/25 17:38 Room Air 10/18/25 17:30 10/18/25 17:12 10/18/25 17:04 Room Air 10/18/25 17:00 10/18/25 16:57 10/18/25 16:53 Room Air 10/18/25 16:43 Room Air Laboratory Results Laboratory Results WBC 7.27 K/ul (4.8-10.8) 10/18/25 17:18 RBC 4.88 M/uL (4.70-6.10) 10/18/25 17:18 Hgb 14.5 g/dL (14.0-18.0) 10/18/25 17:18 Hct 42.8 % (42.0-52.0) 10/18/25 17:18 MCV 87.7 fL (80.0-100.0) 10/18/25 17:18 MCH 29.7 pg (25.0-34.0) 10/18/25 17:18 MCHC 33.9 g/dL (32.0-36.0) 10/18/25 17:18 RDW Std Deviation 44.0 fL (36.4-46.3) 10/18/25 17:18 RDW Coeff of Meghann 13.7 % (11.5-14.5) 10/18/25 17:18 Plt Count 263 K/uL (130-400) 10/18/25 17:18 MPV 9.5 fL (9.4-12.4) 10/18/25 17:18 Immature Gran % (Auto) 0.3 % 10/18/25 17:18 Neut % (Auto) 53.5 % 10/18/25 17:18 Lymph % (Auto) 33.1 % 10/18/25 17:18 [place] % (Auto) 7.4 % 10/18/25 17:18 Eos % (Auto) 5.1 % 10/18/25 17:18 Baso % (Auto) 0.6 % 10/18/25 17:18 Neut # (Auto) 3.89 K/uL (1.40-6.50) 10/18/25 17:18 Lymph # (Auto) 2.41 K/uL (1.20-3.40) 10/18/25 17:18 [place] # (Auto) 0.54 K/uL (0.11-0.59) 10/18/25 17:18 Eos # (Auto) 0.37 K/uL (0.00-0.50) 10/18/25 17:18 Baso # (Auto) 0.04 K/uL (0.00-0.20) 10/18/25 17:18 Immature Gran # (Auto) 0.02 K/uL (0.01-0.20) 10/18/25 17:18 PT 11.1 Seconds (9.0-12.0) 10/18/25 17:18 INR 1.1 (0.9-1.1) 10/18/25 17:18 APTT 24 Seconds (21-31) 10/18/25 17:18 PTT Ratio 0.9 10/18/25 17:18 VBG pH 7.45 (7.36-7.41) H 10/18/25 17:38 VBG pCO2 42 mmHg (38-50) 10/18/25 17:38 VBG pO2 61 mmHg 10/18/25 17:38 VBG HCO3 29 mmol/L 10/18/25 17:38 VBG O2 Saturation 93.3 % 10/18/25 17:38 VBG Base Excess 4.7 mEq/L 10/18/25 17:38 Sodium 136 mmol/L (136-145) 10/18/25 17:18 Potassium 3.7 mmol/L (3.5-5.1) 10/18/25 17:18 Chloride 98 mmol/L (98-107) 10/18/25 17:18 Carbon Dioxide 30 mmol/L (21-32) 10/18/25 17:18 Anion Gap 8 (3-11) 10/18/25 17:18 BUN 22 mg/dl (6-23) 10/18/25 17:18 Creatinine 1.20 mg/dl (0.6-1.4) 10/18/25 17:18 Est Cr Clr Drug Dosing 104.9 ml/min 10/18/25 17:18 eGFR 70.10 10/18/25 17:18 BUN/Creatinine Ratio 18.3 (10-20) 10/18/25 17:18 Glucose 119 mg/dl (70-99(Fasting)) H 10/18/25 17:18 Lactate 1.4 mmol/L (0.4-2.0) 10/18/25 17:18 Calcium 9.5 mg/dl (8.6-10.3) 10/18/25 17:18 Magnesium 1.1 mg/dl (1.7-2.4) L 10/18/25 17:18 Total Bilirubin 0.3 mg/dl (0.2-1.0) 10/18/25 17:18 Direct Bilirubin 0.1 mg/dl (0-0.2) 10/18/25 17:18 AST 31 U/L (13-39) 10/18/25 17:18 ALT 29 U/L (7-52) 10/18/25 17:18 Alkaline Phosphatase 63 U/L (34-104) 10/18/25 17:18 Troponin I High Sens 4.1 pg/ml (0-20) 10/18/25 17:18 Total Protein 7.3 gm/dl (6.0-8.3) 10/18/25 17:18 Albumin 4.1 gm/dl (3.4-5.0) 10/18/25 17:18 Procalcitonin 0.06 ng/ml (0-0.5) 10/18/25 17:18 SARS-CoV-2 (PCR) NEGATIVE (Negative) 10/18/25 17:29 Influenza Type A (PCR) Positive (Neg) A 10/18/25 17:29 Influenza Type B (PCR) Negative (Neg) 10/18/25 17:29 RSV (RT-PCR) Negative (Neg) 10/18/25 17:29 Impressions Chest X-Ray 10/18/25 16:49 COMPARISON: 08/26/2023 FINDINGS: HEART: Normal in size. LUNGS: No focal consolidation, pleural effusion, or vascular congestion. MEEDIASTINUM: Unremarkable. BONES: Bony thorax appears intact. OTHER: Unremarkable. IMPRESSION: No acute disease. Electronically signed by Lauren Aguilar 10-18-2025 6:13 PM ECG Additional Comments: Per my review EKG with normal sinus rhythm at 82bpm, normal axis, TY=753, ZBZ=515, VGs=032, incomplete RBBB, no acute ischemic changes Code Status & VTE Plan VTE Prophylaxis Plan VTE Prophylaxis will be ordered: Yes PG Care Time/CCT Total # of Minutes Spent Total Time Spent with Patient: Total time spent is greater than 50% in coordination of care (as documented) at patient's floor/unit and/or counseling patient: Coding Level of Care Code 57870 INT INP/OBS CARE 3/75MIN Diagnoses Influenza J11.1 Hypoxia R09.02 Hypomagnesemia E83.42 Essential hypertension I10 Hypertension type: essential hypertension Hyperlipidemia E78.5 Status post thyroidectomy E89.0 (4) Hypertension Hypertension type: essential hypertension Qualified Code(s): I10 - Essential (primary) hypertension
[2025-10-18] MEDS ORDERED: DOCUSATE SODIUM 100 MG CAP PO PRN (21:09)
[2025-10-18] MEDS ORDERED: ALBUTEROL HFA 8 GM INHALER INH PRN (21:09)
[2025-10-18] MEDS ORDERED: ONDANSETRON INJ 2 MG/ML 2 ML VIAL IV PRN (21:09)
[2025-10-18] MEDS ORDERED: ACETAMINOPHEN 325 MG TAB PO PRN (21:09)
[2025-10-18] MEDS ORDERED: MELATONIN 3 MG TAB PO PRN (21:09)
[2025-10-18] MEDS: ALBUTEROL HFA 8 GM INHALER INH SCH (21:48)
[2025-10-18] MEDS: OSELTAMIVIR PHOSPHATE 75 MG CAP PO ONE (21:48)
[2025-10-18] MEDS: ENOXAPARIN INJ 40 MG/0.4 ML SYR SQ SCH (21:48)
[2025-10-18 22:06] LABS: Thyroid Stimulating Hormone 0.858 uIu/ml (0.300-4.500)
[2025-10-18 22:27] LABS: Appearance Urine Clear (Clear); Bacteria Urine Automated None Seen (None Seen); Cast Urine Automated 0-2 /lpf (0-2); Epithelial Cell Urine Auto 0-2 /hpf (0-2); Glucose Urine UA Negative (Negative); WBC Urine Automated 0-5 /hpf (0-5)
[2025-10-18 23:37] VITALS: TEMP 98.5
[2025-10-19 06:18] LABS: Hematocrit (blood only) 40.0 % (42.0-52.0); Hemoglobin 13.9 g/dL (14.0-18.0); Mean Corpuscular Hemoglobin 30.5 pg (25.0-34.0); Mean Corpuscular Volume 87.7 fL (80.0-100.0); Platelet Count 273 K/uL (130-400); RDW Standard Deviation 43.9 fL (36.4-46.3); Red Blood Count 4.56 M/uL (4.70-6.10); White Blood Count 7.29 K/ul (4.8-10.8)
[2025-10-19] MEDS: LEVOTHYROXINE SODIUM 175 MCG TABLET PO SCH (06:29)
[2025-10-19 06:40] LABS: Anion Gap 11.0 (3-11); Blood Urea Nitrogen 20.0 mg/dl (6-23); Calcium 9.3 mg/dl (8.6-10.3); Carbon Dioxide 26.0 mmol/L (21-32); Chloride 96.0 mmol/L (98-107); Creatinine Clr Calc Pharmacy 114.4 ml/min; Glucose 188.0 mg/dl (70-99(Fasting)); Magnesium 1.9 mg/dl (1.7-2.4); Potassium 4.0 mmol/L (3.5-5.1); Sodium 133.0 mmol/L (136-145)
[2025-10-19] MEDS ORDERED: ATORVASTATIN 40 MG TAB PO SCH (09:00)
[2025-10-19] MEDS ORDERED: ATENOLOL 50 MG TABLET PO SCH (09:00)
[2025-10-19] MEDS ORDERED: OSELTAMIVIR PHOSPHATE 75 MG CAP PO SCH (09:00)
--- NOTE | 2025-10-19 09:01 | Discharge Summary ---
Discharge Summary Date of Service October 19, 2025 Principal Dx & Hospital Course #1 = Principal Diagnosis (1) Influenza: Patient presented to the hospital with influenza, and mild hypoxia. The morning of 10/19 informed by nursing that patient wanted to leave now. Reviewed with the patient and he mentions that he is leaving today, informed high risk of worsening condition and hypoxia. Will send pt home with tamiflu. Admission HPI Per Admitting Provider Noel Russell is a 60yo male with history of HTN, HLP and GERD presenting with flu-like symptoms. Patient developed fever, chills, body aches, sore throat and cough on 10/14/25. He took a home test on 10/14 and found to be POSITIVE for Influenza A. He was started on Tamiflu on 10/15 and he has been taking Mucinex and Tracee [place] at home to manage his symptoms. Patient overall feels improved from earlier in the week but has been experiencing worsening shortness of breath and cough. His cough is occasionally productive for clear/white sputum. He has noted some wheezing as well. Patient with history of Asthma as a child but has not had many adult symptoms. He does have a pulmonary nodule with minimal tree-in-bud opacities in the RUL which is being followed by Pulmonary - has been stable since 12/04/2021. He had an autoimmune workup that was negative in October 2023. He has had PFTs in the past which revealed a decline in lung function, possibly due to weight gain which occurred after his thyroidectomy. Patient is scheduled to have a repeat CT Chest, PFTs and Pulmonary followup in the coming weeks. In the ER patient with low body temperature at 36.1, tachycardic at 103 following Albuterol. Saturations have been low - 85% on room air upon arrival and and again with saturations in the 80's after ambulation. ER Course: Solumedrol 125mg Albuterol 3mL neb x 3 Magnesium x 2gm Discharge Plan Discharge Items Patient Disposition: Against Medical Advice Reason For Visit: INFLUENZA A, HYPOXIA Condition on Discharge: Serious Activity: Resume your previous activity Lifting: None Sexual Activity: Wait until after follow-up appointment Exercise/Sports: Rest today Weightbearing: Full weightbearing Non-emergency contact: Primary Care Provider Follow-up/Referrals: Jose Salazar MD [Primary Care Provider] - Pending Studies at Discharge: No Stand-Alone Forms: My [facility] [employer], Smoking Cessation Skilled Items Patient informed of condition?: Yes Communicable Disease: Yes Medications and DC Order Prescriptions: Continued sildenafil [Viagra] 50 mg tablet 50 mg PO DAILY PRN (Reason: sexual activity) Qty: 20 0RF Rx Instructions: administer 30 minutes to 4 hours before activity levothyroxine 175 mcg tablet 175 mcg PO DAILY Qty: 90 3RF lisinopril-hydrochlorothiazide 20-25 mg tablet 1 tab PO DAILY Qty: 90 3RF Patient Comments: pt takes in the am atorvastatin 80 mg tablet 80 mg PO QAM Qty: 90 3RF atenolol 50 mg tablet 50 mg PO QAM Qty: 90 3RF oseltamivir [Tamiflu] 75 mg capsule 75 mg PO BID 5 Days Qty: 10 0RF benzonatate 200 mg capsule 200 mg PO TID PRN (Reason: cough) Qty: 30 0RF Rx Instructions: Keep out of reach of children. Do not crush or chew. albuterol sulfate 90 mcg/actuation HFA aerosol inhaler 2 inh inhalation Q4H PRN (Reason: shortness of breath or wheezing) Qty: 6.7 3RF allopurinol 300 mg tablet 300 mg PO DAILY Qty: 90 3RF cholecalciferol (vitamin D3) 125 mcg (5,000 unit) capsule 125 mcg PO DAILY metformin 500 mg tablet extended release 24 hr 500 mg PO BID Qty: 180 3RF Discharge Orders: Left Against Medical Advice (Routine); Ordered 10/19/25 Ordered By: Saumya Davidson/Other Patient Handouts: ED Influenza (Adult) Admission Data Admit Date/Time: 10/18/25 20:07 Attending Provider: Saumya Yo Admit Provider: Maryellen Alexandra Primary Care Provider: Jose Salazar Other Providers: Maryellen Alexandra Hospital Stay Data Consultations 10/18/25 19:43 ED Decision to Admit Stat Pending Results Patient Have Any Pending Studies at Discharge: No Total Time Total Time Spent Total Time Spent (In Minutes): 36 minutes Coding Level of Care Code 91490 INP/OBS DISCH >30 MIN Diagnoses Influenza J11.1
[2025-10-19 09:33] VITALS: BP 121/78; PULSE 104; RESP 20; O2SAT 93
--- NOTE | 2025-10-20 20:41 | Electrocardiogram Report ---
Test Reason : Blood Pressure : */* mmHG Vent. Rate : 82 BPM Atrial Rate : 82 BPM P-R Int : 176 ms QRS Dur : 104 ms QT Int : 382 ms P-R-T Axes : 64 47 61 degrees QTcB Int : 446 ms Normal sinus rhythm Incomplete right bundle branch block Nonspecific T wave abnormality Abnormal ECG When compared with ECG of 26-Aug-2023 13:38, No significant change was found Confirmed by Mary Box ([id number]) on 10/20/2025 8:40:32 PM Referred By: REFERRED SELF Confirmed By: Mary Box
== END 2025-10-19 11:22 | disposition left against medical advice (07) | DRG 195 ==
LOC: ED 16:42 → SUATTDRO 20:07 → EDINP 20:07